=== PATIENT | male | born 1950 | race Caucasian/White ===

== ENCOUNTER 2024-07-28 11:42 | Observation (INO) | payer MEDICARE, OTHER ==
[2024-07-28 11:50] VITALS: RESP 18; TEMP 98.1
--- NOTE | 2024-07-28 12:56 | ED ---
General Adult HPI - General Chief complaint: Abdominal Pain Stated complaint: PEG tube issue Time Seen by Provider: 07/28/24 12:06 Source: patient, family, RN notes reviewed Mode of arrival: ambulatory Limitations: no limitations - History of Present Illness Initial comments: Patient is a 73-year-old male present to the emergency department with problems with his PEG tube. Patient states it has been present for 1 year total. Patient states he is had it changed around every 3 months. Patient states previously they have had to use a wire to help with this. Patient states the last few days there is fullness and discomfort with the tube and patient has discomfort with feedings and they are prolonged significantly. Patient states only discomfort mild at this time at rest. 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 ROS Other: All systems not noted in ROS Statement are negative. Constitutional: Denies: fever Eyes: Denies: eye pain ENT: Denies: ear pain Respiratory: Denies: cough Cardiovascular: Denies: chest pain Endocrine: Denies: fatigue Gastrointestinal: Reports: as per HPI Skin: Denies: rash Past Medical History Past Medical History: GERD/Reflux, Hypertension Additional Past Medical History / Comment(s): Ocular Pharyngeal Muscular Dystrophy Additional Past Surgical History / Comment(s): PEG tube Past Psychological History: No Psychological Hx Reported Smoking Status: Current some day smoker, Never smoker Past Drug Use History: None Reported General Exam Limitations: no limitations General appearance: alert, in no apparent distress Head exam: Present: normocephalic Eye exam: Present: normal appearance Neck exam: Present: normal inspection Respiratory exam: Present: normal lung sounds bilaterally Cardiovascular Exam: Present: regular rate, normal rhythm GI/Abdominal exam: Present: soft, other (PEG tube partially out with fullness subcutaneously.). Absent: tenderness Extremities exam: Present: normal inspection Neurological exam: Present: alert Psychiatric exam: Present: normal affect, normal mood Skin exam: Present: normal color Course Vital Signs 07/28/24 11:46 Temperature 98.1 F Pulse Rate 54 L Respiratory 18 Rate Blood Pressure 134/70 O2 Sat by Pulse 94 L Oximetry Procedures - Procedures Initial comment: Attempted PEG tube replacement. Old tube was partially out. This was easily removed. Site cleansed with Betadine. Attempted to place new PEG tube however tract is not easily found. Attempt was abandoned to avoid potential injury. Medical Decision Making - Medical Decision Making MDM back was pt. sent in by a medical professional or institution (, PA, PLUMBING ASSEMBLER INSTALLER, urgent care, hospital, or retirement...) When possible be specific @ -No Did you speak to anyone other than the patient for history (EMS, parent, family, police, friend...)? What history was obtained from this source @ - is present and helps provide history the patient has had this present for 1 year Did you review nursing and triage notes (agree or disagree)? Why? @ -I reviewed and agree with nursing and triage notes Were old charts reviewed (outside hosp., previous admission, EMS record, old EKG, old radiological studies, urgent care reports/EKG's, retirement records)? Report findings @ -No old charts were reviewed Differential Diagnosis (chest pain, altered mental status, abdominal pain women, abdominal pain men, vaginal bleeding, weakness, fever, dyspnea, syncope, headache, dizziness, GI bleed, back pain, seizure, CVA, palpatations, mental health, musculoskeletal)? @ -Differential Abdominal Pain Men: Appendicitis, cholecystitis, diverticulosis, ischemic bowel, pancreatitis, hepatitis, UTI, gastroenteritis, AAA, incarcerated hernia, bowel obstruction, constipation, inflammatory bowel, hepatitis, peptic ulcer disease, splenic infarction, perforated viscus, testicular torsion, this is not meant to be an all-inclusive list EKG interpreted by me (3pts min.). @ -As above X-rays interpreted by me (1pt min.). @ -None done CT interpreted by me (1pt min.). @ -None done U/S interpreted by me (1pt. min.). @ -None done What testing was considered but not performed or refused? (CT, X-rays, U/S, labs)? Why? @ -None What meds were considered but not given or refused? Why? @ -None Did you discuss the management of the patient with other professionals (professionals i.e. , PA, PLUMBING ASSEMBLER INSTALLER, lab, RT, psych nurse, social welfare administrator, administrative job titles, teacher, worldwide chief creative officer, case work aide)? Give summary @ -Case discussed with Dr. Damon who does recommend admission and patient will need scope for tube placement Was smoking cessation discussed for >3mins.? @ -No Was critical care preformed (if so, how long)? @ -No Were there social determinants of health that impacted care today? How? (Homelessness, low income, unemployed, alcoholism, drug addiction, transportation, low edu. Level, literacy, decrease access to med. care, correction, rehab)? @ -No Was there de-escalation of care discussed even if they declined (Discuss DNR or withdrawal of care, Hospice)? DNR status @ -No What co-morbidities impacted this encounter? (DM, HTN, Smoking, COPD, CAD, Cancer, CVA, ARF, Chemo, Hep., AIDS, mental health diagnosis, sleep apnea, morbid obesity)? @ -Dependent on PEG tube for fluids and some feedings Was patient admitted / discharged? Hospital course, mention meds given and route, prescriptions, significant lab abnormalities, going to OR and other pertinent info. @ -Patient presents from [place] with dysfunctional PEG tube that was easily removed however new PEG tube was unable to be placed. Patient to be admitted. Orders written. Patient updated. Undiagnosed new problem with uncertain prognosis? @ -No Drug Therapy requiring intensive monitoring for toxicity (Heparin, Nitro, Insulin, Cardizem)? @ -No Were any procedures done? @ -No Diagnosis/symptom? @ -PEG tube malfunction Acute, or Chronic, or Acute on Chronic? @ -Acute Uncomplicated (without systemic symptoms) or Complicated (systemic symptoms)? @ -Default Side effects of treatment? @ -No Exacerbation, Progression, or Severe Exacerbation? @ -No Poses a threat to life or bodily function? How? (Chest pain, [place], [place], pneumonia, PE, COPD, DKA, ARF, appy, cholecystitis, CVA, Diverticulitis, Homicidal, Suicidal, threat to staff... and all critical care pts) @ -No Disposition Clinical Impression: PEG tube malfunction Disposition: ADMITTED IP TO THIS HOSP Is patient prescribed a controlled substance at d/c from ED?: No Referrals: Nonstaff,Physician [Primary Care Provider] - 1-2 days Time of Disposition: 13:39
[2024-07-28] MEDS ORDERED: NALOXONE 0.4 MG/ML 1 ML VIAL IV PRN (13:39)
[2024-07-28 14:12] LABS: Basophils % (A) 1 %; Eosinophils # (A) 0.5 k/uL (0-0.7); Eosinophils % (A) 8 %; HCT 34.9 % (39.0-53.0); HGB 11.3 gm/dL (13.0-17.5); Lymphocytes # (A) 1.2 k/uL (1.0-4.8); Lymphocytes % (A) 19 %; MCHC 32.4 g/dL (31.0-37.0); MCV 89.5 fL (80.0-100.0); Mean Platelet Volume 8.2; Monocytes # (A) 0.4 k/uL (0-1.0); Monocytes % (A) 7 %; Neutrophils # (A) 3.9 k/uL (1.3-7.7); Neutrophils % (A) 64 %; Platelet Count 238 k/uL (150-450); RDW 13.9 % (11.5-15.5)
[2024-07-28 14:22] LABS: INR 1.1 (<1.2); Prothrombin Time 12.1 sec (10.0-12.5)
[2024-07-28] MEDS: SODIUM CHLORIDE 0.9% 1,000 ML IV SCH (14:22)
[2024-07-28] MEDS: PANTOPRAZOLE 40 MG/10 ML VIAL IV SCH (14:22)
[2024-07-28 14:29] LABS: ALT 12 U/L (4-49); AST 30 U/L (17-59); African American GFR (CKD) >90 (>60 ml/min/1.73 sqM); Albumin 3.9 g/dL (3.5-5.0); Alkaline Phosphatase 31 U/L (38-126); Anion Gap 7 mmol/L; Blood Urea Nitrogen 29 mg/dL (9-20); Carbon Dioxide 32 mmol/L (22-30); Chloride 100 mmol/L (98-107); Glucose 78 mg/dL (74-99); Non-African American GFR(CKD) 86 (>60 ml/min/1.73 sqM); Sodium 139 mmol/L (137-145); Total Bilirubin 0.6 mg/dL (0.2-1.3)
--- NOTE | 2024-07-28 14:29 | P.GSHP ---
History of Present Illness H&P Date: 07/28/24 CHIEF COMPLAINT: Malfunctioning PEG tube HISTORY OF PRESENT ILLNESS: This is a 73-year-old male who presented with abdominal pain at his PEG tube site. PEG tube was not in the correct position. Patient has a known history of pharyngeal muscular dystrophy. He uses the PEG tube for hydration. He reports that he is able to eat. He noticed yesterday that when he was putting water into the PEG tube he would have increased pain and swelling at the PEG tube site. ER physician tried to replace the PEG tube at bedside unsuccessfully. Surgical service has been consulted for PEG tube placement. Patient reports that he had the PEG tube placed over a year ago in [facility]. He reports that he gets the PEG tube changed about every 3 months by their IR service. Patient lives in [place]. He is here in [place] to help his brother. PAST MEDICAL HISTORY: GERD, hypertension, pharyngeal muscular dystrophy PAST SURGICAL HISTORY: Peg tube MEDICATIONS: See below ALLERGIES: See below SOCIAL HISTORY: No illicit drug use. REVIEW OF SYSTEMS: CONSTITUTIONAL: Denies fever or chills. HEENT: Denies blurred vision, vision changes, or eye pain. Denies hemoptysis CARDIOVASCULAR: Denies chest pain or pressure. RESPIRATORY: No shortness of breath. GASTROINTESTINAL: See HPI for pertinent findings HEMATOLOGIC: Denies bleeding disorders. GENITOURINARY: Denies any blood in urine or increased urinary frequency. SKIN: Denies pruitis. Denies rash. PHYSICAL EXAM: VITAL SIGNS: Reviewed GENERAL: Well-developed in no acute distress. HEENT: No sclera icterus. Extraocular movements grossly intact. Moist buccal mucosa. Head is atraumatic, normocephalic. No nasal drainage. ABDOMEN: Soft. Nondistended. Nontender. PEG tube is currently out. peg tube site with small amount of serosanguineous drainage. NEUROLOGIC: Alert and oriented. Cranial nerves II through XII grossly intact. LABORATORY DATA: IMAGING: ASSESSMENT: 1. Malfunctioning PEG tube PLAN: -Will plan for EGD with PEG tube placement on Thursday, August 01, [address] Bertrand -Patient can be discharged -Patient can eat and drink in a few hours to give time for the PEG tube hole to close. Physician Residential Manager note has been reviewed by physician. Signing provider agrees with the documented findings, assessment, and plan of care. Past Medical History Past Medical History: GERD/Reflux, Hypertension Additional Past Medical History / Comment(s): Ocular Pharyngeal Muscular Dystrophy Additional Past Surgical History / Comment(s): PEG tube Past Psychological History: No Psychological Hx Reported Smoking Status: Current some day smoker, Never smoker Past Drug Use History: None Reported Medications and Allergies Home Medications Medication Instructions Recorded Confirmed Type Baclofen 10 mg PO TID 07/28/24 07/28/24 History Cholecalciferol [Vitamin D3 (125 125 mcg PO DAILY 07/28/24 07/28/24 History Mcg = 5000 Iu)] Fenofibrate [Lofibra] 160 mg PO DAILY 07/28/24 07/28/24 History Fluticasone Nasal [place] [Flonase 1 spray EA NOSTRIL DAILY 07/28/24 07/28/24 History Nasal [place]] Gabapentin 600 mg PO TID 07/28/24 07/28/24 History Gabapentin [Neurontin] 200 mg PO TID PRN 07/28/24 07/28/24 History Ketoconazole 2% Shampoo [Nizoral] 1 applic TOPICAL DIRECTED 07/28/24 07/28/24 History Lisinopril-Hctz 20-25 mg 1 tab PO DAILY 07/28/24 07/28/24 History [Zestoretic -] Loratadine 10 mg PO DAILY 07/28/24 07/28/24 History Meloxicam [Mobic] 15 mg PO DAILY 07/28/24 07/28/24 History Omeprazole 20 mg PO DAILY 07/28/24 07/28/24 History Oxybutynin Chloride [oxyBUTYnin 10 mg PO DAILY 07/28/24 07/28/24 History chloride ER] traMADol HCL 50 mg PO TID 07/28/24 07/28/24 History Allergies Allergy/AdvReac Type Severity Reaction Status Date / Time clindamycin Allergy Unknown Verified 07/28/24 13:45 levofloxacin [From Levaquin] Allergy Unknown Verified 07/28/24 13:45 Sulfa (Sulfonamide Allergy Unknown Verified 07/28/24 13:45 Antibiotics) Surgical - Exam Vital Signs Temp Pulse Resp BP Pulse Ox 98.1 F 54 L 18 134/70 94 L 07/28/24 11:46 07/28/24 11:46 07/28/24 11:46 07/28/24 11:46 07/28/24 11:46 Results - Labs 07/28/24 14:06 Abnormal Lab Results - Last 24 Hours (Table) 07/28/24 Range/Units 14:06 RBC 3.90 L (4.30-5.90) m/uL Hgb 11.3 L (13.0-17.5) gm/dL Hct 34.9 L (39.0-53.0) %
--- NOTE | 2024-07-28 14:31 | P.DS ---
Providers Date of admission: 07/28/24 13:41 Expected date of discharge: 07/28/24 Attending physician: Jona Bertrand Primary care physician: Physician Nonstaff Hospital Course: Discharge diagnosis 1. Malfunctioning PEG tube Hospital course This is a 73-year-old male who presented to the hospital with complaints of malfunctioning PEG tube. Patient has a history of pharyngeal muscular dystrophy. Patient is able to eat and drink a small amount of fluid. He uses the PEG tube for water only. Patient is agreeable to have PEG tube placed outpatient on Thursday with Dr. Bertrand. Patient is stable for discharge. Please refer to chart for any further details. Physician Mailing Machine Operator note has been reviewed by physician. Signing provider agrees with the documented findings, assessment, and plan of care. Patient Condition at Discharge: Stable Plan - Discharge Summary New Discharge Prescriptions: Continue Gabapentin 600 mg PO TID Omeprazole 20 mg PO DAILY Cholecalciferol [Vitamin D3 (125 Mcg = 5000 Iu)] 125 mcg PO DAILY Lisinopril-Hctz 20-25 mg [Zestoretic 20-25] 1 tab PO DAILY Fluticasone Nasal [place] [Flonase Nasal [place]] 1 spray EA NOSTRIL DAILY Fenofibrate [Lofibra] 160 mg PO DAILY traMADol HCL 50 mg PO TID Ketoconazole 2% Shampoo [Nizoral] 1 applic TOPICAL DIRECTED Baclofen 10 mg PO TID Gabapentin [Neurontin] 200 mg PO TID PRN PRN Reason: Pain Oxybutynin Chloride [oxyBUTYnin chloride ER] 10 mg PO DAILY Loratadine 10 mg PO DAILY No Action Meloxicam [Mobic] 15 mg PO DAILY Discharge Medication List Baclofen 10 mg PO TID 07/28/24 [History] Cholecalciferol [Vitamin D3 (125 Mcg = 5000 Iu)] 125 mcg PO DAILY 07/28/24 [History] Fenofibrate [Lofibra] 160 mg PO DAILY 07/28/24 [History] Fluticasone Nasal [place] [Flonase Nasal [place]] 1 spray EA NOSTRIL DAILY 07/28/24 [History] Gabapentin 600 mg PO TID 07/28/24 [History] Gabapentin [Neurontin] 200 mg PO TID PRN 07/28/24 [History] Ketoconazole 2% Shampoo [Nizoral] 1 applic TOPICAL DIRECTED 07/28/24 [History] Lisinopril-Hctz 20-25 mg [Zestoretic 20-25] 1 tab PO DAILY 07/28/24 [History] Loratadine 10 mg PO DAILY 07/28/24 [History] Meloxicam [Mobic] 15 mg PO DAILY 07/28/24 [History] Omeprazole 20 mg PO DAILY 07/28/24 [History] Oxybutynin Chloride [oxyBUTYnin chloride ER] 10 mg PO DAILY 07/28/24 [History] traMADol HCL 50 mg PO TID 07/28/24 [History] Follow up Appointment(s)/Referral(s): Nonstaff,Physician [Primary Care Provider] - 1-2 days Jona Bertrand MD [STAFF PHYSICIAN] - 08/01/24 Activity/Diet/Wound Care/Special Instructions: EGD with PEG tube placement scheduled for Thursday, August 01, [address] Bertrand Scheduling will call and notify you of the time of appointment Do not take Mobic in preparation for procedure on Thursday Discharge Disposition: HOME SELF-CARE
[2024-07-28 14:44] VITALS: BP 133/81; PULSE 55
== END 2024-07-28 15:02 | disposition home or self-care (01) ==
LOC: EC 11:42 → 6NMEDSUR 13:41
PROVIDERS: ADMIT Surgery; ATTEND Surgery
DX: K94.23 Gastrostomy malfunction (principal); T85.848A Pain due to other internal prosthetic devices, implants and grafts, initial encounter; Y83.3 Surgical operation with formation of external stoma as the cause of abnormal reaction of the patient, or of later complication, without mention of misadventure at the time of the procedure; G71.09 Other specified muscular dystrophies; I10 Essential (primary) hypertension; K21.9 Gastro-esophageal reflux disease without esophagitis; F17.200 Nicotine dependence, unspecified, uncomplicated; Z88.1 Allergy status to other antibiotic agents; Z88.2 Allergy status to sulfonamides; Z79.899 Other long term (current) drug therapy; Z79.1 Long term (current) use of non-steroidal anti-inflammatories (NSAID); Z79.891 Long term (current) use of opiate analgesic
CPT/HCPCS: 99284; 80053; 85025; 85610; G0378

== ENCOUNTER 2024-08-01 11:42 | Day surgery (SDC) | payer MEDICARE, OTHER ==
[2024-07-29 10:41] VITALS: BMI 24.3
[2024-08-01] MEDS: IV FLUID CONTINUATION 1,000 ML IV ONE (12:10)
[2024-08-01 12:31] VITALS: TEMP 97.7
[2024-08-01] MEDS: LACTATED RINGERS 1,000 ML IV SCH (12:42)
[2024-08-01] MEDS ORDERED: fentaNYL (PF) 50 MCG/ML 2 ML AMP ONE (13:02)
[2024-08-01] MEDS ORDERED: LIDOCAINE 2% (PF) 20 MG/ML 5 ML VIAL ONE (13:02)
[2024-08-01] MEDS ORDERED: GLYCOPYRROLATE 0.2 MG/ML 2 ML VIAL ONE (13:02)
[2024-08-01] MEDS ORDERED: PROPOFOL 10 MG/ML 20 ML VIAL IV ONE (13:02)
--- NOTE | 2024-08-01 13:12 | P.GSHP ---
History of Present Illness H&P Date: 08/01/24 Chief Complaint: Malnutrition, dysphagia Is a 73-year-old male with history of malnutrition and dysphagia. Patient had a PEG tube which was removed last week. Patient accidentally removed his PEG tube. Patient presents today for placement of PEG tube Past Medical History Past Medical History: Cancer, GERD/Reflux, Hyperlipidemia, Hypertension Additional Past Medical History / Comment(s): PEG tube occlusion, Ocular Pharyngeal Muscular Dystrophy, polyneuropathy, seasonal allergies, history of R wrist fracture, basal cell carcinoma removed from forehead. History of Any Multi-Drug Resistant Organisms: None Reported Past Surgical History: Orthopedic Surgery Additional Past Surgical History / Comment(s): PEG tube placement, R eye surgery, sinus surgery, L arm surgery-fracture repair, spinal cord stimulator placement (Positive MRSA nasal swab prior to surgery 3-4 years ago, not treated) basal cell carcinoma removed from forehead. Past Anesthesia/Blood Transfusion Reactions: No Reported Reaction Additional Past Anesthesia/Blood Transfusion Reaction / Comment(s): No history o f blood transfusion Smoking Status: Never smoker - Past Family History Father Family Medical History: Cancer Additional Family Medical History / Comment(s): Father passed from melanoma Brother(s) Family Medical History: Cancer Additional Family Medical History / Comment(s): Both older and younger brother have prostate cancer Medications and Allergies Home Medications Medication Instructions Recorded Confirmed Type Baclofen 10 mg PO TID 07/28/24 08/01/24 History Cholecalciferol [Vitamin D3 (125 125 mcg PO DAILY 07/28/24 08/01/24 History Mcg = 5000 Iu)] Fenofibrate [Lofibra] 160 mg PO DAILY 07/28/24 08/01/24 History Fluticasone Nasal [place] [Flonase 1 spray EA NOSTRIL DAILY 07/28/24 08/01/24 History Nasal [place]] Gabapentin 600 mg PO TID 07/28/24 08/01/24 History Ketoconazole 2% Shampoo [Nizoral] 1 applic TOPICAL DIRECTED 07/28/24 08/01/24 History Lisinopril-Hctz 20-25 mg 1 tab PO DAILY 07/28/24 08/01/24 History [Zestoretic 20-25] Loratadine 10 mg PO DAILY 07/28/24 08/01/24 History Meloxicam [Mobic] 15 mg PO DAILY 07/28/24 08/01/24 History Omeprazole 20 mg PO DAILY 07/28/24 08/01/24 History Oxybutynin Chloride [oxyBUTYnin 10 mg PO DAILY 07/28/24 08/01/24 History chloride ER] traMADol HCL 50 mg PO Q6HR 07/28/24 08/01/24 History Calcium Carbonate [Tums] 500 mg PO DAILY PRN 07/29/24 08/01/24 History Mometasone Furoate [Elocon 0.1% 1 applic TOPICAL DIRECTED PRN 07/29/24 08/01/24 History Top Soln] Triamcinolone 0.025% Cream 1 applic TOPICAL DIRECTED PRN 07/29/24 08/01/24 History [Kenalog 0.025% Cream] Allergies Allergy/AdvReac Type Severity Reaction Status Date / Time clindamycin Allergy Intermediate Rash/Hives Verified 08/01/24 12:23 levofloxacin [From Levaquin] Allergy Intermediate Rash/Hives Verified 08/01/24 12:23 shellfish derived [Shrimp] Allergy Intermediate Rash/Hives Verified 08/01/24 12:23 Sulfa (Sulfonamide Allergy Intermediate Rash/Hives Verified 08/01/24 12:23 Antibiotics) Surgical - Exam Vital Signs Temp Pulse Resp BP Pulse Ox 97.7 F 58 L 18 144/74 96 08/01/24 12:28 08/01/24 12:28 08/01/24 12:28 08/01/24 12:28 08/01/24 12:28 - General well developed, well nourished, no distress - Eyes PERRL - ENT normal pinna - Neck no masses - Respiratory normal expansion - Cardiovascular Rhythm: regular - Abdomen Abdomen: soft Assessment and Plan Plan: History malnutrition, dysphagia. Will perform PEG tube placement.
--- NOTE | 2024-08-01 13:33 | P.OP ---
Date of Procedure: 08/01/24 Preoperative Diagnosis: Malnutrition Postoperative Diagnosis: Malnutrition Procedure(s) Performed: EGD with PEG Anesthesia: MAC Surgeon: Jona Bertrand Pathology: none sent Condition: stable Disposition: PACU Description of Procedure: The patient received IV sedation. Next the gastroscope placed oropharynx passed in the esophagus and stomach. There is no evidence of any outlet obstruction. Stomach was insufflated with air. The light reflux seen the anterior abdominal wall. The abdomen was preppe d and draped usual fashion. The skin was incised. And the needles placed and stomach under direct visualization. The needle was snared. And the wires placed through the needle and the wire was snared and brought the oropharynx. The PEG tube was placed over top the wire brought down to the stomach. The PEG tube was secured. At the 3 cm mery. The one-piece bolster was used. Patient tolerated procedure well.
[2024-08-01 13:50] VITALS: RESP 16
[2024-08-01 14:10] VITALS: BP 149/85; PULSE 51
== END 2024-08-01 14:24 | disposition home or self-care (01) ==
LOC: ORWHC2ENDO 11:42
PROVIDERS: ATTEND Surgery
DX: K21.9 Gastro-esophageal reflux disease without esophagitis (principal); E46 Unspecified protein-calorie malnutrition; E78.5 Hyperlipidemia, unspecified; G62.9 Polyneuropathy, unspecified; J30.2 Other seasonal allergic rhinitis; I10 Essential (primary) hypertension; Z85.828 Personal history of other malignant neoplasm of skin; Z46.59 Encounter for fitting and adjustment of other gastrointestinal appliance and device; Z88.1 Allergy status to other antibiotic agents; Z88.2 Allergy status to sulfonamides; Z79.51 Long term (current) use of inhaled steroids; Z79.1 Long term (current) use of non-steroidal anti-inflammatories (NSAID); Z79.899 Other long term (current) drug therapy; G71.09 Other specified muscular dystrophies
CPT/HCPCS: 43246; J3010; J2704; J2003; J1596; B4087